=== PATIENT | male | born 1995 | race Hispanic/Latino ===

== ENCOUNTER 2018-06-28 00:53 | Emergency (ER) | payer OTHER ==
[2018-06-28 01:43] LABS: RAPID GROUP A STREP NEGATIVE (NEGATIVE)
== END 2018-06-28 02:09 | disposition home or self-care (01) ==
LOC: EDH 00:53
DX: B34.9 Viral infection, unspecified (principal)
CPT/HCPCS: 87804; 87880

== ENCOUNTER 2021-09-29 07:46 | Day surgery (SDC) | payer OTHER ==
[2021-09-26 15:05] LABS: BASOPHILS % (AUTO) 0.5 % (0.0-5.0); EOSINOPHILS % (AUTO) 1.8 % (0.0-8.0); HEMATOCRIT 44.3 % (42-54); LYMPHOCYTES % (AUTO) 39.1 % (21.0-51.0); MEAN CORPUSCULAR HEMOGLOBIN 30.3 pg (27.0-33.0); MEAN CORPUSCULAR HGB CONC 34.1 g/dL (32.0-36.0); MEAN CORPUSCULAR VOLUME 88.8 fL (79-99); MONOCYTES % (AUTO) 6.9 % (3.0-13.0); NEUTROPHILS % (AUTO) 51.4 % (40.0-77.0); PLATELET COUNT (AUTO) 246 K/uL (130-400); RED BLOOD CELL COUNT(AUTO) 4.99 MIL/uL (4.50-6.20); WHITE BLOOD COUNT (AUTO) 7.3 K/uL (4.8-10.8)
[2021-09-26 15:12] LABS: POTASSIUM 3.9 mmol/L (3.5-5.1)
[2021-09-26 15:38] VITALS: BP 146/84
[~2021-09-29] VITALS: Ht 175.3 cm; Wt 112.5 kg
[2021-09-29] VITALS (16 sets, daily range): BP systolic 119–147; BP diastolic 68–98
[~2021-09-29 07:46] MED LIST: CEFAZOLIN SODIUM 1 GM VIAL IVP SCH
[2021-09-29] MEDS ORDERED: LACTATED RINGERS 1000ML 1,000 ML IV ONE (08:04)
[2021-09-29] MEDS ORDERED: FAMOTIDINE 20MG VIAL IV ONE (09:54)
[2021-09-29] MEDS ORDERED: MIDAZOLAM HCL 1 MG/ML 2ML VIAL ONE (09:59)
[2021-09-29] MEDS ORDERED: LIDOCAINE PF 100MG/5ML (2%) SYRINGE 5ML ONE (10:03)
[2021-09-29] MEDS ORDERED: ROCURONIUM 10MG/1ML SYR 10 MG/ML ML ONE ×2 (10:03→11:55)
[2021-09-29] MEDS ORDERED: PROPOFOL 10 MG/ML 20ML VIAL IV ONE (10:03)
[2021-09-29] MEDS ORDERED: NEOSTIGMINE 5MG/5ML SYR IV ONE (10:03)
[2021-09-29] MEDS ORDERED: GLYCOPYRROLATE 1 MG/5 ML SYRINGE ONE (10:03)
[2021-09-29] MEDS ORDERED: FENTANYL CITRATE PF 50 MCG/1 ML 2ML VIAL ONE (10:04)
[2021-09-29] MEDS ORDERED: ONDANSETRON 4MG INJ ONE (10:47)
[2021-09-29] MEDS ORDERED: CEFAZOLIN SODIUM 1 GM VIAL ONE (10:49)
[2021-09-29] MEDS ORDERED: EPHEDRINE SULFATE 50 MG/ML AMPULE ONE (10:54)
[2021-09-29] MEDS ORDERED: ROPIVACAINE 0.5% 5MG/ML 30ML IJ ONE (11:34)
[2021-09-29] MEDS ORDERED: CEPH500B PO (12:15)
[2021-09-29] MEDS ORDERED: HYDR-4060 PO (12:15)
[2021-09-29] MEDS ORDERED: IBUP-2070 PO (12:15)
[2021-09-29] MEDS ORDERED: MEPERIDINE-PF 25 MG/ML SYG ONE ×2 (12:49→13:09)
[2021-09-29] MEDS ORDERED: KETOROLAC 30MG VIAL (30MG/ML) ONE (13:43)
== END 2021-09-29 14:50 | disposition home or self-care (01) ==
LOC: DAH 07:46
PROVIDERS: ATTEND Orthopaedic Surgery
DX: M23.351 Other meniscus derangements, posterior horn of lateral meniscus, right knee (principal); M23.611 Other spontaneous disruption of anterior cruciate ligament of right knee; M94.261 Chondromalacia, right knee; M23.51 Chronic instability of knee, right knee; Z79.899 Other long term (current) drug therapy; Z98.890 Other specified postprocedural states
CPT/HCPCS: 87426; 80048; 85025; 36415; 29888; 29881; 64447; 76942; A4663; J7030; A4649 ×5; J7120; J3490 ×3; J3010; J0690 ×2; J2710; J2001; J2250; J2704; J2405; J1885; J2175 ×2; J2795; A6223; C1776 ×2; C1713; C1762; A5120; A4215; A4223; A4222; A4221; A6450